=== PATIENT | female | born 1990 | race Caucasian/White ===

== ENCOUNTER 2017-01-31 20:36 | Emergency (ER) | payer OTHER ==
--- NOTE | 2017-01-31 21:52 | EDM.PDOC ---
ED HPI GENERAL MEDICAL PROBLEM - General Chief Complaint: Abdominal Pain Stated Complaint: R ABDOMINAL PAIN Time Seen by Provider: 01/31/17 21:44 Source of Information: Reports: Patient, RN Notes Reviewed History Limitations: Reports: No Limitations - History of Present Illness INITIAL COMMENTS - FREE TEXT/NARRATIVE: here with her Chief complaint Right-sided lower abdominal pain History of present illness 26-year-old female, 6 weeks , on oral contraceptive, last menstrual period finished 2 days ago Was well today until just before her evening meal felt some generalized stomachache. She smallmouth then the pain became much sharper in the right lower quadrant at 6 PM. Not severe. In the waiting room the pain improved. Some nausea with it which has improved, no vomiting. Delivered a 9 lbs. 11 oz. baby by vaginal delivery, no abdominal surgery previously. Pain is improved to the point that she feels silly for being here Her mother had ruptured appendicitis right side abdominal pain Pain Score (Numeric/FACES): 4 - Related Data Allergies Allergy/AdvReac Type Severity Reaction Status Date / Time No Known Allergies Allergy Verified 01/31/17 21:41 Home Meds: Home Meds Norgestimate-Ethinyl Estradiol [Trinessa Tablet] 1 each PO DAILY 01/31/17 [ History] Past Medical History [employer] History: Reports: , Spontaneous Dermatologic History: Reports: Eczema ED ROS GENERAL - Review of Systems Review Of Systems: See Below Constitutional: Reports: No Symptoms HEENT: Reports: No Symptoms Respiratory: Reports: No Symptoms Cardiovascular: Reports: No Symptoms GI/Abdominal: Reports: Abdominal Pain, Nausea. Denies: Diarrhea, Decreased Appetite, Difficulty Swallowing, Distension, Vomiting : Reports: No Symptoms Skin: Reports: No Symptoms Neurological: Reports: No Symptoms ED EXAM, GI/ABD - Physical Exam Exam: See Below Exam Limited By: No Limitations General Appearance: Alert, No Apparent Distress, Other (elevated blood pressure otherwise vital signs normal, looks well, color normal, no difficulty speaking or breathing) Eyes: Bilateral: Normal Appearance, EOMI Ears: Normal External Exam Nose: Normal Inspection Throat/Mouth: Normal Inspection, Normal Oropharynx Head: Atraumatic, Normocephalic Neck: Normal Inspection, Supple Respiratory/Chest: No Respiratory Distress, Lungs Clear, Normal Breath Sounds, No Accessory Muscle Use Cardiovascular: Normal Peripheral Pulses, Regular Rate, Rhythm GI/Abdominal Exam: Normal Bowel Sounds, Soft, No Distention, No Mass, Tender ( mild, right lower quadrant, no rigidity no guarding) Back Exam: Normal Inspection Extremities: Normal Inspection Neurological: Alert, Oriented, Normal Cognition, No Motor/Sensory Deficits Psychiatric: Normal Affect, Normal Mood Skin Exam: Warm, Dry, Intact, Normal Color, No Rash Lymphatic: No Adenopathy Course - Vital Signs Last Recorded V/S: Last Vital Signs Temp 36.2 C 01/31/17 21:52 Pulse 93 01/31/17 21:52 Resp 16 01/31/17 21:52 BP 147/105 H 01/31/17 21:52 Pulse Ox 98 01/31/17 21:52 - Orders/Labs/Meds Labs: Laboratory Tests 01/31/17 01/31/17 Range/Units 21:59 22:05 WBC 15.0 H (4.5-11.0) K/uL RBC 4.61 (3.30-5.50) M/uL Hgb 14.4 (12.0-15.0) g/dL Hct 42.3 (36.0-48.0) % MCV 92 (80-98) fL MCH 31 (27-31) pg MCHC 34 (32-36) % Plt Count 265 (150-400) K/uL Urine Color Yellow Urine Appearance Slightly cloudy Urine pH 6.5 (4.5-8.0) Ur Specific [place] 1.015 (1.008-1.030) Urine Protein Negative (NEGATIVE) mg/dL Urine Glucose (UA) Normal (NEGATIVE) mg/dL Urine Ketones Negative (NEGATIVE) mg/dL Urine Occult Blood Negative (NEGATIVE) Urine Nitrite Negative (NEGATIVE) Urine Bilirubin Negative (NEGATIVE) Urine Urobilinogen Normal (NORMAL) mg/dL Ur Leukocyte Esterase Negative (NEGATIVE) Urine RBC 0-5 (0-5) Urine WBC 0-5 (0-5) Ur Epithelial Cells Few Amorphous Sediment Few Urine Bacteria Moderate Urine Mucus Moderate - Re-Assessments/Exams Free Text/Narrative Re-Assessment/Exam: 01/31/17 22:00 26-year-old female with fairly abrupt right lower quadrant abdominal pain onset. Over 4 hours, now significantly improved. CBC white count 15.0 hemoglobin normal Urinalysisnormal 01/31/17 22:54 pain remains mild although she feels a bit chilled a little nausea but still feels that she would be able to sleep Minimal tenderness on repeat examination, recommend return to emergency if pain worsens OTC analgesics when necessary Departure - Departure Time of Disposition: 22:55 Disposition: Home, Self-Care 01 Condition: Good Clinical Impression: Generalized abdominal pain - Discharge Information Instructions: Abdominal Pain, Adult, [id number] Referrals: PCP,None [Primary Care Provider] - Forms: ED Department Discharge Additional Instructions: abdominal pain of uncertain cause it is still possible this could be early appendicitis You may take acetaminophen or ibuprofen Do not hesitate return to emergency if your pain is worsening, he developed fever, or repeated vomiting
[2017-01-31 23:16] VITALS: BP 137/76
== END 2017-01-31 23:09 | disposition home or self-care (01) ==
LOC: JP.ED 20:36
DX: R10.84 Generalized abdominal pain (principal); Z79.899 Other long term (current) drug therapy
CPT/HCPCS: 36415; 81001; 85027; 99284